=== PATIENT | female | born 1970 ===

== ENCOUNTER 2021-08-13 05:21 | Day surgery (SDC) | payer OTHER ==
[~2021-08-13 05:21] MED LIST: CALTRATE 600 +1 EAC1 PO; CENTRUM ADULT120 MCG PO; CHILDREN'S ASPI81 MG PO; SYNTHROID88 MCG PO; VITAMIN C500 M6 PO
== END 2021-08-13 14:25 | disposition home or self-care (01) ==
LOC: CIR.AMB 05:21
PROVIDERS: ATTEND Otolaryngology Otology & Neurotology
DX: H72.92 Unspecified perforation of tympanic membrane, left ear (principal); H66.92 Otitis media, unspecified, left ear; H71.92 Unspecified cholesteatoma, left ear; Z88.0 Allergy status to penicillin; Z86.16 Personal history of COVID-19; E03.9 Hypothyroidism, unspecified; Z79.82 Long term (current) use of aspirin; Z20.822 Contact with and (suspected) exposure to COVID-19